=== PATIENT | female | born 2000 | race Caucasian/White ===

== ENCOUNTER → 2018-04-28 | Outpatient (CLI) | payer BC ==
--- NOTE | 2018-04-28 16:41 | RAD ---
Abdominal ultrasound, 04/28/2018: HISTORY: Right upper quadrant pain and vomiting The gallbladder is within normal limits in size. There is no sonographic evidence of cholelithiasis. The gallbladder wall is not thickened. The common hepatic duct is of normal caliber. There is no evidence of a hepatic mass. The visualized portions of the pancreas, spleen and both kidneys are unremarkable. The abdominal aorta and inferior vena cava show no abnormality. No free fluid is evident in the abdomen. IMPRESSION: No significant abdominal abnormality is detected. Electronically signed by: North Osman MD (04/28/2018 4:37 PM) [facility]
== END | disposition home or self-care (01) ==
LOC: US 16:01
PROVIDERS: ATTEND Physician Assistant
DX: A09 Infectious gastroenteritis and colitis, unspecified (principal); R10.11 Right upper quadrant pain; R11.10 Vomiting, unspecified
CPT/HCPCS: 76700

== ENCOUNTER 2019-02-10 10:09 | Emergency (ER) | payer OTHER, BC ==
[~2019-02-10] VITALS: Ht 157.5 cm; Wt 71.2 kg
[2019-02-10 10:15] VITALS: BP 127/64
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
== END 2019-02-10 11:26 | disposition home or self-care (01) ==
LOC: ER 10:09
DX: O9A.211 Injury, poisoning and certain other consequences of external causes complicating pregnancy, first trimester (principal); S00.83XA Contusion of other part of head, initial encounter; Z3A.00 Weeks of gestation of pregnancy not specified; V49.49XA Driver injured in collision with other motor vehicles in traffic accident, initial encounter; Y93.I9 Activity, other involving external motion; Y92.488 Other paved roadways as the place of occurrence of the external cause; Y99.8 Other external cause status
CPT/HCPCS: 70150; 99284